=== PATIENT | female | born 1970 | race Caucasian/White ===

== ENCOUNTER 2018-02-05 01:10 | Observation (INO) ==
[2018-02-05] MEDS ORDERED: Acetaminophen 325 MG TABLET PO PRN (06:15)
[2018-02-05] MEDS ORDERED: Naloxone 0.4 MG/ML INJ IVP PRN (06:15)
[2018-02-05] MEDS ORDERED: 0.9 % Sodium Chloride 1,000 ML IVC SCH (06:15)
[2018-02-05] MEDS ORDERED: OXYCODONE Oral CONC 10 MG/0.5 ML ORAL.SYG SL PRN (06:25)
--- NOTE | 2018-02-05 06:30 | Internal Med History&Physical ---
Date of Encounter: 02/05/18 Time of Encounter: 06:27 Internal Medicine - H&P: HPI Chief complaint: Chest pain Admitted From: Hospital to Hospital Transfer Plans for Post Hospital Care: Home History of present illness: Ms. Fregoso is a 47 year old female who presented to [facility] ED with chest pain. She states that she has been having chest pain on and off for few days now. She did some research online and became concerned about heart attack. She has a history of tachycardia and severe anxiety. She initially thought it was due to her anxiety. She came to ED and pain went away after receiving nitro and aspirin. She states that pain was located in her left chest and radiated down left arm. She denies fever, chills, SOB, nausea, vomiting, abdominal pain, changes in bowels, or headache. She recently had ECHO done 1 week ago at [facility]; she was told that it was unchanged from previous. She states the ECHO was to monitor her heart secondary to chronic tachycardia. She has no complaints at this time. She is resting comfortably in bed. We discussed plan of care. Past Med Surg Social Fam HX - Past Medical History Attestation: Yes The following information was validated with the patient. Medical history: other (Tachycardia, Insomnia) Psychiatric history: anxiety, depression - Past Surgical History Surgical History: cholecystectomy - Social History Smoking Status: Never smoker Alcohol use: none Drug use: none - Family History Mother Hx Family Cardiac Disorders: Yes (HTN) Hx Family Cancer: Yes (breast cancer) - Additional Family History Additional family history: Confirmed family history with patient. Internal Medicine - H&P: Meds Buspirone HCl [Buspar] 7.5 mg PO BID 02/05/18 [History] Duloxetine HCl [Cymbalta] 60 mg PO DAILY 02/05/18 [History] Metoprolol Tartrate [Metoprolol Tartrate] 37.5 mg PO HS 02/05/18 [History] Metoprolol [Lopressor] 25 mg PO DAILY 02/05/18 [History] RX: cloNIDine HCl [CloNIDine HCl] 0.1 mg PO HS 02/05/18 [History] RX: traZODone [TraZODone] 200 mg PO HS 02/05/18 [History] Sulfamethoxazole/Trimeth DS [Bactrim DS] 1 each PO BID 02/05/18 [History] Tizanidine HCl [Zanaflex] 4 mg PO BID 02/05/18 [History] 3 Allergy/AdvReac Type Severity Reaction Status Date / Time azithromycin [From Zithromax] Allergy See Verified 06/07/15 09:04 Comments methylprednisolone Allergy See Verified 06/07/15 09:04 [From Medrol] Comments pseudoephedrine Allergy Blurry Verified 06/07/15 09:04 [From Sudafed] Vision Zolpidem [From Ambien] AdvReac Nightmare Verified 06/07/15 09:04 All Systems PM: A 10-system review of systems was performed and is negative for pertinent findings except as documented above in the HPI. - Constitutional Vitals: Temp Pulse Resp BP Pulse Ox 98.4 F 85 16 104/66 92 02/05/18 03:35 02/05/18 03:35 02/05/18 03:35 02/05/18 03:35 02/05/18 03:35 General appearance: Present: cooperative, A&O X 3, pleasant, no acute distress, answers questions appropriately - Head Head exam: Present: atraumatic, normal inspection, normocephalic - Eye Eye exam: Present: EOMI, normal appearance, PERRL. Absent: conjunctival injection, nystagmus, scleral icterus - ENT ENT exam: Present: mucous membranes moist, normal external ear exam, normal oropharynx - Neck Neck exam general surgery: Present: supple, trachea midline. Absent: lymphadenopathy, tenderness, thyromegaly - Respiratory Respiratory exam: Present: CTAB. Absent: accessory muscle use, rales, rhonchi, wheezes Additional comments: Normal WOB - Cardiovascular Cardiovascular exam: Present: RRR, +S1, +S2. Absent: diastolic murmur, gallop, irregular rhythm, rubs, systolic murmur, tachycardia Additional comments: No BLE edema - GI/Abdominal GI/Abdominal exam: Present: normal bowel sounds, soft. Absent: distended, hepatomegaly, mass, splenomegaly, tenderness - Neurological Exam Neurological exam: Present: alert, CN II-XII intact, oriented X3, no focal deficits, strengths equal and symetr throughout. Absent: motor sensory deficit , facial droop, speech deficit - Psychiatric Psychiatric exam: Present: normal affect, normal mood. Absent: agitated, anxious, depressed - Skin Skin exam: Present: dry, intact, warm. Absent: cyanosis, rash - Assessment and plan (1) Chest pain Current Visit: Yes Status: Acute Assessment and plan: She states pain is now resolved after getting aspirin and nitro at [facility]. Chest pain could have been secondary to her chronic anxiety and chronic tachycardia. She had a repeat ECHO done 1 week ago at [facility] that was "same as the previous." Will obtain ECHO results from [facility]. I will maker her NPO for stress test today. If any abnormalities found on subsequent testing, will consult cardiology. Trend troponin x 3. We will resume aspirin and PRN nitro when not NPO. Start low dose sublingual oxycodone for pain. Check repeat labwork now then daily. Continue telemetry. Qualifiers: Chest pain type: other chest pain Qualified Code(s): R07.89 - Other chest pain; R07.8 - Other chest pain (2) Tachycardia Current Visit: Yes Status: Acute Assessment and plan: Will restart home metoprolol once not NPO. Ordered PRN IV metoprolol while NPO. Obtaining ECHO results from OSH as per above. (3) Acute kidney injury Current Visit: Yes Status: Acute Assessment and plan: Creatinine elevated at [facility]. May be secondary to Bactrim use. Will either hold or change antibiotic once confirmed what she was taking it for. Continue IV NS at 100 ml/hr. Recheck BMP now then daily. (4) Anxiety Current Visit: Yes Status: Chronic Assessment and plan: Continue home medications once not NPO. Added very low dose ativan 0.5 mg IV Q6H PRN for anxiety while NPO. (5) Insomnia Current Visit: Yes Status: Chronic Assessment and plan: Continue home trazodone when not NPO. Qualifiers: Insomnia type: other insomnia Qualified Code(s): G47.09 - Other insomnia (6) DVT prophylaxis Current Visit: Yes Status: Acute Assessment and plan: Start lovenox 40 mg SQ QD. - Time Spent With Patient Total time spent is greater than 50% in coordination of care (as documented) at patient's floor/unit and/or counseling patient: less than 15 minutes
[2018-02-05] MEDS ORDERED: *HR* LORazepam 2 MG/ML VIAL IVP PRN (06:41)
[2018-02-05 07:08] LABS: Basophils % 0.4 %; Eosinophils # 0.2 K/mcL (0.0-0.6); Eosinophils % 3.1 %; Hematocrit 34.5 % (35.3-44.9); Hemoglobin 11.8 g/dL (11.5-15.4); Immature Granulocytes % 0.3 % (0-4); Lymphocytes # 2.6 K/mcL (0.6-4.6); Lymphocytes % 37.4 %; Mean Corpuscular HGB Conc 34.2 g/dL (31.6-35.5); Mean Corpuscular Hemoglobin 29.3 pg (28.0-33.3); Mean Corpuscular Volume 85.6 fL (83.0-100.0); Mean Platelet Volume 10.6 fL (9.4-12.4); Monocytes # 0.6 K/mcL (0.0-1.3); Monocytes % 8.8 %; Neutrophils # 3.4 K/mcL (1.6-8.9); Platelet Count 215 K/mcL (140-400); Red Blood Count 4.03 M/mcL (3.82-4.97); Red Cell Distribution Width 13.9 % (11.5-14.5)
[2018-02-05 07:25] LABS: Alanine Aminotransferase 10 Units/L (7-52); Albumin 3.5 g/dL (3.5-5.7); Albumin/Globulin Ratio 1.4 (1.1-2.2); Alkaline Phosphatase 79 Units/L (34-104); Aspartate Amino Transferase 12 Units/L (13-39); BUN/Creatinine Ratio 14 (6-26); Bilirubin,Total 0.3 mg/dL (0.3-1.0); Blood Urea Nitrogen 16 mg/dL (6-20); Calcium 8.6 mg/dL (8.6-10.3); Carbon Dioxide 24 mEq/L (23-29); Chloride 108 mEq/L (98-107); Globulin 2.5 g/dL (2.4-3.5); Glucose 95 mg/dL (70-105); Osmolality,Calculated 283 (280-300); Potassium 4.1 mEq/L (3.5-5.1); Sodium 136 mEq/L (136-145); eGFR For African Americans > 60 (> 60); eGFR For Non-African Americans 52 (> 60)
[2018-02-05 07:26] LABS: Chol/HDL Ratio 3.8 (0-4.9)
[2018-02-05] MEDS ORDERED: Regadenoson 0.4 MG/5 ML SYRINGE IVP ONE (08:27)
[2018-02-05] MEDS ORDERED: *HR* Enoxaparin 40 MG/0.4 ML SYRINGE SQ SCH (09:00)
[2018-02-05 10:46] VITALS: BP 110/71
[2018-02-05] MEDS ORDERED: tiZANidine 4 MG TABLET PO SCH (11:30)
[2018-02-05] MEDS ORDERED: *HR* Metoprolol 5 MG/5 ML VIAL IVP SCH (12:00)
--- NOTE | 2018-02-05 16:05 | Discharge Summary ---
- NOTES TO OUTPATIENT PROVIDER Notes to Outpatient Provider: Patient underwent cardiac stress test and negative for ischemia or infarct Orders not resulted at time of discharge: Pending orders 02/05/18 06:14 NM pio perf SPECT multi [NM] Routine 02/05/18 18:00 Troponin I Q6H Date of Encounter: 02/05/18 Time of Encounter: 14:00 - Discharge Diagnosis (1) Chest pain Priority: Primary Status: Acute Qualifiers: Chest pain type: other chest pain Qualified Code(s): R07.89 - Other chest pain; R07.8 - Other chest pain (2) Tachycardia Priority: Secondary Status: Acute (3) Anxiety Priority: Secondary Status: Chronic (4) Insomnia Priority: Secondary Status: Chronic Qualifiers: Insomnia type: other insomnia Qualified Code(s): G47.09 - Other insomnia Hospital course: Ms. Fregoso is a 47 year old female past medical history of insomnia tachycardia anxiety and depression. Patient was recently seen to as [facility] ED with chest pain she did not having chest pain off-and-on for the past few days. She initially thought was anxiety. The pain went away receiving aspirin. She recently had an echo completed 1 week ago [facility] she was told was unchanged from previous. Troponins were negative 2. Nuclear stress test was completed negative for any ischemia or infarct. Did review previous [facility] echo. She continues to be chest pain-free advised patient follow up with primary care physician encouraged lifestyle changes including losing weight and cardiac diet. She is hemodynamically stable and ready for discharge. Discharge discussed with: patient - Time Spent with Patient Total time spent providing and/or coordinating discharge services: - Discharge Medications Home Medications: Buspirone HCl [Buspar] 7.5 mg PO BID 02/05/18 [History] Duloxetine HCl [Cymbalta] 60 mg PO DAILY 02/05/18 [History] Metoprolol Tartrate [Metoprolol Tartrate] 37.5 mg PO HS 02/05/18 [History] Metoprolol [Lopressor] 25 mg PO DAILY 02/05/18 [History] Sulfamethoxazole/Trimeth DS [Bactrim DS] 1 each PO BID 02/05/18 [History] Tizanidine HCl [Zanaflex] 4 mg PO BID 02/05/18 [History] cloNIDine HCl [CloNIDine HCl] 0.1 mg PO HS 02/05/18 [History] traZODone [TraZODone] 200 mg PO HS 02/05/18 [History] Allergies/Adverse Reactions: 3 Allergy/AdvReac Type Severity Reaction Status Date / Time azithromycin [From Zithromax] Allergy See Verified 06/07/15 09:04 Comments methylprednisolone Allergy See Verified 06/07/15 09:04 [From Medrol] Comments pseudoephedrine Allergy Blurry Verified 06/07/15 09:04 [From Sudafed] Vision Zolpidem [From Ambien] AdvReac Nightmare Verified 06/07/15 09:04 Date of admission: 02/05/18 02:53 Primary care physician: Darby Whelan MD - Constitutional Vitals: Temp Pulse Resp BP Pulse Ox 97.3 F L 89 14 110/71 96 02/05/18 10:45 02/05/18 10:45 02/05/18 10:45 02/05/18 10:45 02/05/18 10:45 General appearance: Present: cooperative, A&O X 3, pleasant, no acute distress, answers questions appropriately - Head Head exam: Present: atraumatic, normocephalic - Eye Eye exam: Present: PERRL, conjuntiva pink, sclera anicteric Pupils: Present: PERRL - Neck Neck exam general surgery: Present: supple, trachea midline. Absent: lymphadenopathy - Respiratory Respiratory exam: Present: CTAB. Absent: accessory muscle use, rales, rhonchi, wheezes - Cardiovascular Cardiovascular exam: Present: RRR, +S1, +S2. Absent: diastolic murmur, gallop, rubs, systolic murmur - GI/Abdominal GI/Abdominal exam: Present: normal bowel sounds, soft, no peritoneal signs. Absent: distended, tenderness - Extremities Exam Extremities exam: Present: warm, radial pulses palpable and symmetrical. Absent : calf tenderness, cyanotic, pedal edema - Neurological Exam Neurological exam: Present: CN II-XII intact, oriented X3, no focal deficits. Absent: pronater drift, facial droop, speech deficit - Skin Skin exam: Present: dry, intact - Patient Status Disposition: Home, Self-Care Condition: Critical Functional capacity at discharge: independent ambulation Overall status at discharge: patient is back to baseline - Discharge Instructions Instructions: Chest Pain (DC), Heart Healthy Diet (DC) Follow Up With: Darby Whelan MD [Primary Care Provider] - 02/13/18 12:40 pm - Diet and Activity Activity: increase activity as tolerated Diet: low fat, low cholesterol, low salt diet
[2018-02-05] MEDS ORDERED: traZODone 50 MG TABLET PO SCH (21:00)
[2018-02-05] MEDS ORDERED: cloNIDine HCl 0.1 MG TABLET PO SCH (21:00)
== END 2018-02-05 16:18 | disposition home or self-care (01) ==
LOC: 3BNU
PROVIDERS: ADMIT Family Medicine; ATTEND Family Medicine